=== PATIENT | female | born 1995 | race African-American/Black ===

== ENCOUNTER 2019-05-09 11:23 | Emergency (ER) | payer OTHER ==
[2019-05-09 11:39] VITALS: BP 112/54; PULSE 79; TEMP 98.8; BMI 25.8
[2019-05-09] MEDS ORDERED: ALBUTEROL SO4 2.5/IPRATROPIUM 0.5 INH SOL 3 ML VIAL.NEB. NEB ONE ×2 (12:24→12:27)
--- NOTE | 2019-05-09 12:25 | PDOC ---
History of Present Illness - General Chief Complaint: Sore Throat Stated Complaint: SORE THROAT/DIFF BREATHING Time Seen by Provider: 05/09/19 12:04 History Source: Patient Exam Limitations: No Limitations - History of Present Illness Initial Comments: 05/09/19 12:32 24y F hx of asthma (no intubations, last admission ~1yr ago)presentings with 1 day of sore throat, nonproductive cough, sneezing, mild sob/wheezing without associated fever/chills, n/v, ear pain. No recent travel or known sick contacts. Daughter is also here with similar sypmtmos of coughing/sneezing. denies any cp, abd pain, back pain, leg swelling. pt has not taken any meds for her wheezing as she ran out of her albuterol. denie ssmoking, drug use family hx noncontributory Constitutional - no reported Fever, Chills, HEENT: +sore throat no reported vision changes, Respiratory: +cough, sob, no reported hemoptysis Cardiac: no reported chest pain, palpitations, light headedness, leg swelling Abd/GI: no reported abd pain, nausea, vomiting, blood per rectum, melena, diarrhea Musculskelatal - no reported back pain, joint swelling skin - no reported bruising, erythema, rash neurological: no reported headache, numbness, focal weakness, tingling, ataxia, hematologic: no reported easy bruising, easy bleeding GENERAL: The patient is awake, alert, and fully oriented, Nontoxic - in no acute distress. HEAD: Normocephalic, atraumatic. EYES: extraocular movements intact, sclera anicteric, conjunctiva clear. ENT: Normal voice, Moist mucous membranes, mild erythema in the posterior pharynx without any exudates or asymmetry NECK: Normal range of motion, supple LUNGS: Scattered wheezing bilaterally without any rales or rhonchi, speaking complete sentences no acute respiratory distress HEART: Regular rate and rhythm, normal S1 and S2 without murmur, rub or gallop. EXTREMITIES: Normal range of motion, no edema. NEUROLOGICAL: No facial assymetry, Normal speech, moving all 4 extremities spontaneously and symmetrically PSYCH: Normal mood, normal affect. SKIN: Warm, Dry, normal turgor, Suspect viral syndrome exacerbating asthma, we will obtain a rapid strep We'll give duoneb x 1 and reasesss, if patient requires more than one nebulizer we'll consider prednisone 05/09/19 13:18 rap[id strep neg pt feelin gimproved pulm rpeat exam shows clear lungs will give refill for neb/albuterol but will defer predisone I discussed the physical exam findings, ancillary test results and final diagnoses with the patient. I answered all of the patient's questions. The patient was satisfied with the care received and felt comfortable with the discharge plan and treatment plan. The patient will call their primary care physician within 24 hours to arrange follow-up and will return to the Emergency Department with any new, persistent or worsening symptoms. Past History - Past Medical History Allergies/Adverse Reactions: Allergies Allergy/AdvReac Type Severity Reaction Status Date / Time No Known Allergies Allergy Verified 05/09/19 11:35 Home Medications: Ambulatory Orders Albuterol 0.083% Nebulizer Minna [Ventolin 0.083% Nebulizer Soln -] 1 neb NEB Q4H PRN #30 vial 05/09/19 Albuterol Sulfate Inhaler - [Ventolin HFA Inhaler -] 1 - 2 inh PO Q4H #1 inhaler 05/09/19 Asthma: Yes Cancer: No Cardiac Disorders: No COPD: No Diabetes: No HTN: No Seizures: No Thyroid Disease: No - Reproductive History (#): 3 Para: 1 Cervical CA: No Dysfunctional Uterine Bleeding: No Ectopic : No Endometrial CA: No Polycystic Ovaries: No Therapeutic (s) & number: No Tubal Ligation: No Spontaneous : 1 - Immunization History Immunization Up to Date: Yes - Suicide/Smoking/Psychosocial Hx Smoking History: Never smoked Have you smoked in the past 12 months: No Information on smoking cessation initiated: No Hx Alcohol Use: No Drug/Substance Use Hx: No Substance Use Type: None Hx Substance Use Treatment: No *Physical Exam - Vital Signs Last Vital Signs Temp Pulse Resp BP Pulse Ox 98.8 F 79 16 112/54 L 98 05/09/19 11:36 05/09/19 11:36 05/09/19 11:36 05/09/19 11:36 05/09/19 11:36 *DC/Admit/Observation/Transfer Diagnosis at time of Disposition: Asthma exacerbation Qualifiers: Asthma severity: mild Asthma persistence: intermittent Qualified Code(s): J45.21 - Mild intermittent asthma with (acute) exacerbation URI (upper respiratory infection) Qualifiers: URI type: acute nasopharyngitis (common cold) Qualified Code(s): J00 - Acute nasopharyngitis [common cold] - Discharge Dispostion Disposition: HOME Condition at time of disposition: Improved Decision to Admit order: No - Prescriptions Prescriptions: Albuterol 0.083% Nebulizer Minna [Ventolin 0.083% Nebulizer Soln -] 1 neb NEB Q4H PRN #30 vial PRN Reason: Cough Albuterol Sulfate Inhaler - [Ventolin HFA Inhaler -] 1 - 2 inh PO Q4H #1 inhaler - Referrals - Patient Instructions Printed Discharge Instructions: DI for Asthma -- Adult Additional Instructions: Return to the emergency department immediately with ANY new, persistent or worsening symptoms. You MUST call and follow up with your doctor tomorrow for further evaluation of your symptoms. Results were discussed with you. Please make sure your doctor reviews the results of your emergency evaluation. If you had any xrays during your visit, it was read preliminarily by myself, a Radiologist will review it and if there are any additional findings we will call you. Print Language: CHINESE - Post Discharge Activity
== END 2019-05-09 13:26 | disposition home or self-care (01) ==
LOC: JERFT 11:23
PROC: 3E0F7GC Introduction of Other Therapeutic Substance into Respiratory Tract, Via Natural or Artificial Opening (ICD-10-PCS; principal; 2019-05-09)
DX: J45.21 Mild intermittent asthma with (acute) exacerbation (principal); J00 Acute nasopharyngitis [common cold]
CPT/HCPCS: 87070; 87880; 94640; 99282-25

== ENCOUNTER 2019-09-16 17:26 | Emergency (ER) | payer OTHER ==
[2019-09-16 17:33] VITALS: BP 105/58; PULSE 68; TEMP 98; BMI 28.3
--- NOTE | 2019-09-16 17:47 | PDOC ---
History of Present Illness - General Chief Complaint: Injury Stated Complaint: LACERATION Time Seen by Provider: 09/16/19 17:33 History Source: Patient - History of Present Illness Occurred: reports: just prior to arrival Pain Location: reports: face Method of Injury: Yes: fall Past History - Past Medical History Allergies/Adverse Reactions: Allergies Allergy/AdvReac Type Severity Reaction Status Date / Time No Known Allergies Allergy Verified 09/16/19 17:33 Home Medications: Ambulatory Orders Albuterol 0.083% Nebulizer Minna [Ventolin 0.083% Nebulizer Soln -] 1 neb NEB Q4H PRN #30 vial 05/09/19 Albuterol Sulfate Inhaler - [Ventolin HFA Inhaler -] 1 - 2 inh PO Q4H #1 inhaler 05/09/19 Asthma: Yes Cancer: No Cardiac Disorders: No COPD: No Diabetes: No HTN: No Seizures: No Thyroid Disease: No - Reproductive History (#): 3 Para: 1 Cervical CA: No Dysfunctional Uterine Bleeding: No Ectopic : No Endometrial CA: No Polycystic Ovaries: No Therapeutic (s) & number: No Tubal Ligation: No Spontaneous : 1 - Immunization History Immunization Up to Date: Yes - Psycho Social/Smoking Cessation Hx Smoking History: Never smoked Have you smoked in the past 12 months: No Hx Alcohol Use: No Drug/Substance Use Hx: No Substance Use Type: None Hx Substance Use Treatment: No Review of Systems - Review of Systems Neurological: No: Headache, Dizziness *Physical Exam - Vital Signs Last Vital Signs Temp Pulse Resp BP Pulse Ox 98 F 68 18 105/58 L 98 09/16/19 17:31 09/16/19 17:31 09/16/19 17:31 09/16/19 17:31 09/16/19 17:31 - Physical Exam General Appearance: Yes: Appropriately Dressed. No: Apparent Distress HEENT: positive: Other (superficial abrasions to L lower labial mucosa and to L lower lip, dentition intact) Neck: positive: Supple Integumentary: positive: Dry, Warm Neurologic: positive: Fully Oriented, Alert, Normal Mood/Affect Medical Decision Making - Medical Decision Making 09/16/19 17:43 24-year-old F, with lip injury after fall. Patient states she tripped down steps today striking face against banister. No LOC ,headache, dizziness nausea or vomiting. Patient well-appearing and stable with superficial abrasions to labial mucosa/lower lip. No need for repair. Tetanus UTD. Dc for wound check as needed in 48 hours 1 Discharge - Discharge Information Problems reviewed: Yes Clinical Impression/Diagnosis: Lip abrasion Qualifiers: Encounter type: initial encounter Qualified Code(s): S00.511A - Abrasion of lip , initial encounter Condition: Good Disposition: HOME - Follow up/Referral - Patient Discharge Instructions Patient Printed Discharge Instructions: DI for Minor Laceration Additional Instructions: Your laceration today is very minor and did not warrant repair. Take Motrin or Tylenol as needed for pain Return in 2 days as needed for redness pus or fever Refrain from spicy or salty foods until wound heals - Post Discharge Activity
== END 2019-09-16 17:52 | disposition home or self-care (01) ==
LOC: JERFT 17:26
DX: S00.511A Abrasion of lip, initial encounter (principal); W10.8XXA Fall (on) (from) other stairs and steps, initial encounter; Y93.89 Activity, other specified; Y99.8 Other external cause status; Y92.414 Local residential or business street as the place of occurrence of the external cause
CPT/HCPCS: 99282-25

== ENCOUNTER 2019-10-20 12:15 | Emergency (ER) | payer OTHER ==
[2019-10-20 12:53] VITALS: BP 104/63; PULSE 88; TEMP 98.2; BMI 29.2
[2019-10-20] MEDS ORDERED: IBUPROFEN 600 MG TABLET (FP) PO ONE ×2 (14:31→14:43)
--- NOTE | 2019-10-20 14:35 | PDOC ---
History of Present Illness - General Chief Complaint: Pain Stated Complaint: SWOLLEN PINKY Time Seen by Provider: 10/20/19 13:28 History Source: Patient Exam Limitations: No Limitations - History of Present Illness Initial Comments: 10/20/19 14:31 24 year old female with medical history of asthma, no significant surgical history presents with pain and swelling to left 5th digit since earlier today. Patient reports while lifting a basket her finger got caught in the basket pulling it backwards. Complaining of pain with movement. Occurred: reports: this afternoon Severity: reports: mild Upper Extremity Pain Location: left: 5th finger Method of Injury: reports: other (lifting) Modifying Factors: improves with: immobilization Extremity Pain Location - Extremity Pain Location Extremity Pain Locations: left: 5th finger Past History - Travel Traveled outside of the country in the last 30 days: No Close contact w/someone who was outside of country & ill: No - Past Medical History Allergies/Adverse Reactions: Allergies Allergy/AdvReac Type Severity Reaction Status Date / Time No Known Allergies Allergy Verified 10/20/19 12:53 Home Medications: Ambulatory Orders Ibuprofen 600 mg PO TID #20 tablet 10/20/19 Asthma: Yes Cancer: No Cardiac Disorders: No COPD: No Diabetes: No HTN: No Seizures: No Thyroid Disease: No - Reproductive History (#): 3 Para: 1 Cervical CA: No Dysfunctional Uterine Bleeding: No Ectopic : No Endometrial CA: No Polycystic Ovaries: No Therapeutic (s) & number: No Tubal Ligation: No Spontaneous : 1 - Immunization History Immunization Up to Date: Yes - Psycho Social/Smoking Cessation Hx Smoking History: Never smoked Have you smoked in the past 12 months: No Information on smoking cessation initiated: No Hx Alcohol Use: No Drug/Substance Use Hx: No Substance Use Type: None Hx Substance Use Treatment: No Review of Systems - Review of Systems Able to Perform ROS?: Yes Is the patient limited Mohawk proficient: No Constitutional: No: Chills, Fever HEENTM: No: Ear Pain, Nose Congestion Respiratory: No: Orthopnea, Shortness of Breath Cardiac (ROS): No: Chest Pain, Lightheadedness ABD/GI: No: Blood Streaked Bowels, Vomiting : No: Burning, Discharge, Incontinence Musculoskeletal: Yes: Other (swelling of left 5th digit) Integumentary: No: Erythema Neurological: No: Headache, Numbness Endocrine: No: Increased Urine, Unexplained Weight Gain *Physical Exam - Vital Signs Last Vital Signs Temp Pulse Resp BP Pulse Ox 98.2 F 88 20 104/63 95 10/20/19 12:51 10/20/19 12:51 10/20/19 12:51 10/20/19 12:51 10/20/19 12:51 - Physical Exam General Appearance: Yes: Nourished, Appropriately Dressed HEENT: positive: TMs Normal, Pharynx Normal Neck: positive: Supple, Lymphadenopathy (R), Lymphadenopathy (L) Respiratory/Chest: positive: Lungs Clear Cardiovascular: positive: Regular Rate, S1, S2 Extremity: positive: Normal Capillary Refill, Swelling. negative: Erythema Neurologic: positive: Fully Oriented, Alert Medical Decision Making - Medical Decision Making 10/20/19 14:34 24 year old female with medical history of asthma, no significant surgical history presents with pain and swelling to left 5th digit since earlier today. Patient reports while lifting a basket her finger got caught in the basket pulling it backwards. finger injury xray analgesia ordered 10/20/19 15:29 wet read negative xray of finger splint place d/c home Discharge - Discharge Information Problems reviewed: Yes Clinical Impression/Diagnosis: Finger injury Qualifiers: Encounter type: initial encounter Laterality: left Qualified Code(s): S69.92XA - Unspecified injury of left wrist, hand and finger(s), initial encounter Condition: Good Disposition: HOME - Admission No - Additional Discharge Information Prescriptions: Ibuprofen 600 mg PO TID #20 tablet - Follow up/Referral Referrals: Augustus Leon MD [Primary Care Provider] - Quentin Vivar MD [Staff Physician] - Call tomorrow CallBack Reminder: xray results - Patient Discharge Instructions Patient Printed Discharge Instructions: Finger Sprain Additional Instructions: Apply ice compress to area for 20 minutes 3 to 4 times daily wear splint for comfort may remove for showering Elevate at rest May call orthopedic if not better within 7 days - Post Discharge Activity Work/Back to School Note: Back to Work
== END 2019-10-20 15:49 | disposition home or self-care (01) ==
LOC: JERFT 12:15
PROC: 2W3KX1Z Immobilization of Left Finger using Splint (ICD-10-PCS; principal; 2019-10-20)
DX: S69.82XA Other specified injuries of left wrist, hand and finger(s), initial encounter (principal); W23.0XXA Caught, crushed, jammed, or pinched between moving objects, initial encounter; Y93.89 Activity, other specified; Y92.89 Other specified places as the place of occurrence of the external cause; Y99.8 Other external cause status
CPT/HCPCS: 29131; 73130-TC-LT-FY; 73140-TC-LT-FY; 99282-25

== ENCOUNTER 2019-10-27 12:47 | Emergency (ER) | payer OTHER ==
--- NOTE | 2019-10-27 13:03 | PDOC ---
History of Present Illness - General Chief Complaint: Nausea/Vomiting Stated Complaint: VOMITING/vaginal bleeding Time Seen by Provider: 10/27/19 13:02 History Source: Patient Exam Limitations: No Limitations - History of Present Illness Initial Comments: 10/27/19 13:03 PCP: Dr. Coffman PROTECTION ANALYST: Dr. Haylie Orta HPI: 24yo F PMH asthma presenting with nausea and vomiting for 2 days. Patient reports N/V starting after losing her appetite 2 days ago. Reports symptoms began after eating [place] food, no one else with similar symptoms, "almost constant vomiting" for two days. No PO tolerance since 2 days ago. No sick contacts. Noted some spots of blood her in emesis starting last night. Endorses chills at home, abdominal pain begining after the N/V located primarily in epigastrium and bilateral lower quadrants (intermittent, crampy, non-progressive ). Noted some spotting last night (LMP August, Irregular since giving March 20 of this year, , currently breast feeding), no history of polyps / fibroids / cysts or abnormal PAP results. Has had UTIs in the past, this feels different. No hx of kidney stones. Does not use BC and states she could be . Denies CP, SOB, fevers, diarrhea / constipation, blood per rectum. All: NKDA Meds: Albuterol as needed PMH: As above PSH: Denies Past History - Travel Traveled outside of the country in the last 30 days: No Close contact w/someone who was outside of country & ill: No - Past Medical History Allergies/Adverse Reactions: Allergies Allergy/AdvReac Type Severity Reaction Status Date / Time No Known Allergies Allergy Verified 10/27/19 13:01 Home Medications: Ambulatory Orders Ibuprofen 600 mg PO TID #20 tablet 10/20/19 Asthma: Yes Cancer: No Cardiac Disorders: No COPD: No Diabetes: No HTN: No Seizures: No Thyroid Disease: No - Reproductive History (#): 3 Para: 1 Cervical CA: No Dysfunctional Uterine Bleeding: No Ectopic : No Endometrial CA: No Polycystic Ovaries: No Therapeutic (s) & number: No Tubal Ligation: No Spontaneous : 1 - Immunization History Immunization Up to Date: Yes - Psycho Social/Smoking Cessation Hx Smoking History: Never smoked Have you smoked in the past 12 months: No Hx Alcohol Use: No Drug/Substance Use Hx: No Substance Use Type: None Hx Substance Use Treatment: No Review of Systems - Review of Systems Able to Perform ROS?: Yes Is the patient limited Finnish proficient: Yes Constitutional: Yes: Chills. No: Diaphoresis, Fever, Weakness HEENTM: No: Blurred Vision, Recent change in vision, Throat Pain, Throat Swelling Respiratory: No: Cough, Shortness of Breath, Wheezing Cardiac (ROS): No: Chest Pain, Irregular Heart Rate, Lightheadedness, Palpitations, Chest Tightness ABD/GI: Yes: Nausea, Poor Appetite, Poor Fluid Intake, Vomiting. No: Blood Streaked Bowels, Constipated, Diarrhea, Rectal Bleeding : No: Burning, Dysuria, Discharge, Frequency, Pain Musculoskeletal: No: Muscle Weakness, Neck Pain Integumentary: No: Bruising, Change in Hair/Nails, Erythema, Rash Neurological: No: Headache, Numbness, Tingling, Weakness Psychiatric: No: Anxiety, Depression, Emotional Problems Hematologic/Lymphatic: No: Anemia, Blood Clots, Easy Bleeding All Other Systems: Reviewed and Negative *Physical Exam - Vital Signs Last Vital Signs Temp Pulse Resp BP Pulse Ox 98.0 F 80 16 105/65 100 10/27/19 12:50 10/27/19 12:50 10/27/19 12:50 10/27/19 12:50 10/27/19 12:50 - Physical Exam 10/27/19 13:06 Vitals reviewed, AFVSS WDWN woman, appears stated age, no acute distress, no active heaving / emesis EOMI, MMM, normal morphologies, atraumatic RRR, nl s1s2, no murmurs appreciated Normal WOB, CTABL, no wheezes / rales / rhonchi Soft, non-distended, tender in epigastrium, no scars, tattoos present WWP, no clubbing / cyanosis / edema 2+ radial and PT pulses Warm, dry, no rashes appreciated CN grossly intact, MAEE, normal strength and sensation 10/27/19 14:11 Pelvic exam performed with Nurse Anamaria Scott assisting / as gauge checker SSE: Normal external genitalia, normal vaginal rugae without legions, thin white physiologic discharge, no blood in the vault, normal closed os visualized with smooth cervix BME: Non-tender adnexa and cervix, no adnexal fullness appreciated ED Treatment Course - LABORATORY CBC & Chemistry Diagram: 10/27/19 13:40 10/27/19 13:40 Medical Decision Making - Medical Decision Making 10/27/19 13:06 24yo F with PMH asthma presenting with nausea and vomiting for 2 days. Hx notable for concurrent spotting, no BC. Notably not vomiting while in the ED. DDX includes but is not limited to: viral gastritis, (ectopic vs IUP) , pancreatitis, UTI. Less likely something like DKA presentation of DM2 in an otherwise young healthy patient. Unlikely colitis, hepatitis, biliary pathology given Hx and exam. Small volume blood streaks in emesis after several days of consistent n/v c/w Brenda Tamez picture, [place] unlikely. Normal pelvic exam without CMT making PID unlikely, no active bleeding, closed os. - CBC, CMP, UPreg, UA, Lipase - T&S and Ultrasound if UPreg positive - Pepcid, Zosyn, 1L IVF 10/27/19 14:06 - CBC unremarkable with mild WBC elevation to 10.4, stable H&H - Results of pelvic and CBC conveyed to patient - Urine studies pending 10/27/19 16:30 - Type and screen hemolyzed, prior O negative in chart - Patient now at ultrasound - CMP unremarkable - UA negative for UTI 10/27/19 17:26 - TVUS with viable 6wk Dispo: Home Discharge - Discharge Information Problems reviewed: Yes Clinical Impression/Diagnosis: Qualifiers: Weeks of gestation: less than 8 weeks Qualified Code(s): Z3A.01 - Less than 8 weeks gestation of Condition: Stable Disposition: HOME - Admission No - Follow up/Referral - Patient Discharge Instructions Patient Printed Discharge Instructions: DI for Nausea -- Adult, DI for Vomiting -- Adult Additional Instructions: Please follow up with your PROTECTION ANALYST in the next week to establish obstetric care. Return to the ED for any new or concerning symptoms including vaginal bleeding, worsening abdominal pain, nausea/vomiting that prevents you from tolerating fluids by mouth. - Post Discharge Activity
[2019-10-27 13:04] VITALS: BP 105/65; PULSE 80; TEMP 98; BMI 28.8
[2019-10-27] MEDS ORDERED: ONDANSETRON 4 MG/2 ML VIAL IVPUSH ONE (13:24)
[2019-10-27] MEDS ORDERED: SODIUM CHLORIDE 0.9% 500 ML INFUS.BAG IV ONE (13:25)
[2019-10-27] MEDS ORDERED: ONDANSETRON 4 MG/2 ML VIAL ONE (13:33)
[2019-10-27] MEDS ORDERED: FAMOTIDINE 20 MG TABLET PO ONE (13:34)
[2019-10-27 13:52] LABS: BASO % 0.7 % (0-2.0); EOS % 0.4 % (0-4.5); HEMATOCRIT 40.2 % (32.4-45.2); HEMOGLOBIN 13.4 GM/dL (10.7-15.3); LYMPH % 20.8 % (8-40); MCHC 33.4 g/dl (32.0-36.0); MEAN CELL VOLUME 98.8 fl (80-96); MEAN PLT VOLUME 7.8 fl (7.5-11.1); MONO % 6.5 % (3.8-10.2); NEUT % 71.6 % (42.8-82.8); PLATELET COUNT 274 K/MM3 (134-434); RBC 4.07 M/mm3 (3.60-5.2); RDW 12.7 % (11.6-15.6); WHITE BLOOD COUNT 10.4 K/mm3 (4.0-10.0)
[2019-10-27] MEDS ORDERED: FAMOTIDINE 10 MG TABLET ONE (14:04)
--- NOTE | 2019-10-27 14:09 | PDOC ---
Attending Attestation - Resident Resident Name: TyreseJace - ED Attending Attestation I have performed the following: I have examined & evaluated the patient, The case was reviewed & discussed with the resident, I agree w/resident's findings & plan - HPI HPI: 10/27/19 14:07 Healthy 24-year-old female presents with nausea/vomiting/diarrhea/abdominal cramping for 2 days. Patient reports she had [place] food 3 nights ago, since then has had intermittent generalized abdominal cramping with nonbloody nonbilious vomiting and nonbloody diarrhea, no fevers or chills, no urinary complaints. No recent travel, no known sick contacts, no recent antibiotics. Over the last 48 hours, patient also noted some vaginal spotting, from March 2019 and breast-feeding so menstrual cycles have been irregular, LMP August. - Physicial Exam PE: 10/27/19 14:08 Vital signs normal, urine pending Well-appearing, no acute distress No jaundice or pallor, slightly dry mucosa Heart is regular, lungs are clear Abdomen is soft/nondistended. Epigastric and suprapubic discomfort to palpation without guarding or rebound, no CVA tenderness Pelvic as per resident note No edema - Medical Decision Making 10/27/19 14:08 24-year-old female presents with 2 days of nausea/vomiting/diarrhea/Abdominal cramping without focal peritoneal findings on examination and with normal vital signs here. Possible viral etiology such as gastroenteritis, possible food borne illness, rule out . Check labs, urinalysis No indication for emergent imaging Rehydration, antacid, antiemetic Reassess and disposition accordingly 10/27/19 14:58 LFT and lipase normal. + serum , so obtain EVUS to r/o ectopic. Pt aware. UA pending.
[2019-10-27 14:23] LABS: ALBUMIN 3.9 g/dl (3.4-5.0); BILIRUBIN,TOTAL 0.7 mg/dL (0.2-1); BLOOD UREA NITROGEN 9.6 mg/dL (7-18); CALCIUM 8.7 mg/dL (8.5-10.1); CREATININE 0.9 mg/dL (0.55-1.3); POTASSIUM 4.8 mmol/L (3.5-5.1); TOT PROT 7.8 g/dl (6.4-8.2)
[2019-10-27 16:18] LABS: EPI CELLS 1.7 /HPF (0-5/HPF); HYALINE CASTS 16 /lpf (0-8); PH,URINE 5.5 (5.0-8.0); URINE APPEARANCE CLEAR; URINE BILIRUBIN NEGATIVE (NEGATIVE); URINE COLOR YELLOW; URINE GLUCOSE (UA) NEGATIVE (NEGATIVE); URINE KETONE 3+ (NEGATIVE); URINE LEUK ESTERASE NEGATIVE (NEGATIVE); URINE NITRITE NEGATIVE (NEGATIVE); URINE PROTEIN 1+ (NEGATIVE); URINE RBC 12 /hpf (0-4)
[2019-10-27 16:38] LABS: URINE WBC 23.3 /hpf (0-5)
== END 2019-10-27 17:56 | disposition home or self-care (01) ==
LOC: JER 12:47
PROC: 3E033GC Introduction of Other Therapeutic Substance into Peripheral Vein, Percutaneous Approach (ICD-10-PCS; principal; 2019-10-27)
PROC: 3E0337Z Introduction of Electrolytic and Water Balance Substance into Peripheral Vein, Percutaneous Approach (ICD-10-PCS; 2019-10-27)
DX: Z3A.01 Less than 8 weeks gestation of pregnancy (principal)
CPT/HCPCS: 36415; 76817-TC; 80053; 81003; 83690; 84702; 85025; 99283-25

== ENCOUNTER 2020-08-27 15:50 | Emergency (ER) | payer OTHER ==
[2020-08-27 16:20] VITALS: BMI 30.5
--- NOTE | 2020-08-27 16:31 | PDOC ---
Rapid Medical Evaluation Chief Complaint: Back Pain Medical Evaluation: Allergies Allergy/AdvReac Type Severity Reaction Status Date / Time No Known Allergies Allergy Verified 08/27/20 16:16 Vital Signs Temp Pulse Resp BP Pulse Ox 98.7 F 97 H 16 121/53 L 100 08/27/20 16:16 08/27/20 16:16 08/27/20 16:16 08/27/20 16:16 08/27/20 16:16 08/27/20 16:28 25-year-old female G3, P2, 33 weeks gestation presents complaining of low back pain since yesterday worsening today. Denies vaginal discharge, vaginal bleeding, trauma, nausea, vomiting, abdominal pain, chest pain, shortness of breath, urinary complaints or any other symptoms. VSS transferred to L&D Discharge Disposition - Diagnosis Low back pain Qualifiers: Chronicity: acute Back pain laterality: unspecified Sciatica presence: without sciatica Qualified Code(s): M54.5 - Low back pain - Discharge Dispostion Last Admission D/C Date: 05/19/13 - Referrals Referrals: Augustus Leon MD [Primary Care Provider] - - Patient Instructions - Post Discharge Activity
--- OUTSIDE RECORDS SUMMARY | 2020-08-27 16:34 | XMS ---
:1995 Author Organization [facility] Support Name Relationship Address Phone UE Unavailable Unavailable Unavailable JOSÉ GRANDFATHER [address] [place] [address] JOSÉ MOTHER [address] [place] [address] JOSÉ Mother [address] [place] [address] Re-disclosure Warning The records that you are about to access may contain information from federally- assisted alcohol or drug abuse programs. If such information is present, then the following federally mandated warning applies: This information has been disclosed to you from records protected by federal confidentiality rules (42 CFR part 2). The federal rules prohibit you from making any further disclosure of this information unless further disclosure is expressly permitted by the written consent of the person to whom it pertains or as otherwise permitted by 42 CFR part 2. A general authorization for the release of medical or other information is NOT sufficient for this purpose. The Federal rules restrict any use of the information to criminally investigate or prosecute any alcohol or drug abuse patient.The records that you are about to access may contain highly sensitive health information, the redisclosure of which is protected by Article 27-F of the [facility] Public Health law. If you continue you may haveaccess to information: Regarding HIV / AIDS; Provided by facilities licensed or operated by the [facility] Office of Mental Health; or Provided by the [facility] Office for People With Developmental Disabilities. If such information is present, then the following [facility] mandated warning applies: This information has been disclosed to you from confidential records which are protected by state law. State law prohibits you from making any further disclosure of this information without the specific written consent of the person to whom it pertains, or as otherwise permitted by law. Any unauthorized further disclosure in violation of state law may result in a fine or mcfp sentence or both. A general authorization for the release of medical or other information is NOT sufficient authorization for further disclosure. Insurance Providers Payer name Policy type Policy ID Covered Covered alliance party's Policy P lupe / Coverage alliance party ID relationship to Huang Inf ormation type huang [facility] MEDICAID [id number]
--- NOTE | 2020-08-27 17:51 | PD.OB.PROG ---
Past Medical History - Primary Care Physician PCP:: Robyn Lamb Documenting Provider Type: Attending - Admission Chief Complaint: 25 yrs , 32.4 weeks gestation c/o back ache started since last night , progressively getting worse . no c/o cramps, vaginal bleeding or leaking. no urinary symptoms. FM are active . drinks plenty po fluids History of Present Illness: pnc at [address] [place] [address] . chart reviewed . Labs : panel : 12/14/19 : 11.8/35.9, plt 260 gc/ct neg sickle neg . O Pos, Hbsag neg, , varicella immune, measles immune 1 hr gtt 82, quantiferon neg US as per pt everything was ok, last US 2 wks ago , cx was normal . no h/o [place] or Progesterone suppository was given US reprt not available for review . 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 Weeks Gestation by Dates: 32.4 ...EDC by Dates: 10/18/20 Heme/Onc: Denies/None Infectious Disease: Denies/None Psych: Denies/None Musculoskeletal: Other (h/o low back ache in past) Rheumatology: Denies/None ENT: Denies/None Endocrine: Denies/None Dermatology: Denies/None - Past Surgical History Past Surgical History: Yes: None - Smoking History Smoking history: Never smoked Have you smoked in the past 12 months: No - Alcohol/Substance Use Hx Alcohol Use: No History of Substance Use: reports: None Review of Systems - Review of Systems Constitutional: reports: No Symptoms Eyes: reports: No Symptoms HENT: reports: No Symptoms Neck: reports: No Symptoms Cardiovascular: reports: No Symptoms Respiratory: reports: No Symptoms Gastrointestinal: reports: No Symptoms Genitourinary: reports: No Symptoms Breasts: reports: No Symptoms Reported Musculoskeletal: reports: No Symptoms Integumentary: reports: No Symptoms Neurological: reports: No Symptoms Endocrine: reports: No Symptoms Hematology/Lymphatic: reports: No Symptoms Psychiatric: reports: No Symptoms Pain Intensity: 6 (bckache ) Physical Exam - Obstetrical Vital Signs: Vital Signs Temperature 98.7 F 08/27/20 16:16 Pulse Rate 97 H 08/27/20 16:16 Respiratory Rate 16 08/27/20 16:16 Blood Pressure 121/53 L 08/27/20 16:16 O2 Sat by Pulse Oximetry (%) 100 08/27/20 16:16 Constitutional: Yes: Well Nourished, Mild Distress - Abdominal Exam/OB Fundal Height: 32 Number of Fetuses: Single Presentation: Vertex Contractions: No Monitor Mode: External Heart Rate (range): 150 Category: I Accelerations: Non-Uniform Decelerations: None - Vaginal Exam/OB Vaginal Exam Deferred: Yes Vaginal Bleeding: No Speculum Exam: No Dilatation (cm): close Effacement (%): 0 Amniotic Membrane Status: Intact Presentation: Vertex/Position Station: -4 - Physical Exam Musculoskeletal: Yes: WNL Extremities: Yes: WNL. No: Calf Tenderness Edema: No Psychiatric: Yes: WNL, Alert, Oriented Problem List - Problems (1) with 32 completed weeks gestation Code(s): Z3A.32 - 32 WEEKS GESTATION OF (2) Low back pain Code(s): M54.5 - LOW BACK PAIN Qualifiers: Chronicity: acute Back pain laterality: unspecified Sciatica presence: without sciatica Qualified Code(s): M54.5 - Low back pain Assessment/Plan 25 yrs , 32,3/7 weeks gestation c/o backache, h/o one premature delivery followed by term pregn . imp: musculoskeletal problem Plan back extension ex shown, avoid lifting heavy weight . continue po Vit & iron drink plenty po fluids keep clinic appt
[2020-08-27 18:07] VITALS: BP 104/64; PULSE 87; TEMP 98.3
== END 2020-08-27 17:25 | disposition home or self-care (01) ==
LOC: JER 15:50
DX: M54.5 Low back pain (principal); Z3A.33 33 weeks gestation of pregnancy
CPT/HCPCS: 99282-25

== ENCOUNTER 2020-10-19 22:30 | Inpatient (IN) | payer OTHER ==
[2020-10-19] MEDS: DEXTROSE 5%-LACTATED RINGERS 1,000 ML IV SCH (23:40)
[2020-10-19 23:50] LABS: BASO % 0.7 % (0-2.0); EOS % 0.3 % (0-4.5); HEMATOCRIT 35.7 % (32.4-45.2); HEMOGLOBIN 11.4 GM/dL (10.7-15.3); LYMPH % 17.6 % (8-40); MCH 31.1 pg (25.7-33.7); MEAN CELL VOLUME 97.2 fl (80-96); MEAN PLT VOLUME 8.8 fl (7.5-11.1); MONO % 6.2 % (3.8-10.2); NEUT % 75.2 % (42.8-82.8); PLATELET COUNT 266 K/MM3 (134-434); RBC 3.68 M/mm3 (3.60-5.2); RDW 13.2 % (11.6-15.6); WHITE BLOOD COUNT 12.5 K/mm3 (4.0-10.0)
[2020-10-19 23:51] VITALS: BMI 31.9
[2020-10-19 23:56] LABS: INR 0.99 (0.83-1.09)
[2020-10-20] MEDS ORDERED: PROMETHAZINE HCL 25 MG/1 ML VIAL IVPUSH ONE (00:04)
[2020-10-20] MEDS ORDERED: BUTORPHANOL TARTRATE 1 MG/ML VIAL IVPB ONE (00:04)
[2020-10-20 00:26] LABS: POTASSIUM 3.9 mmol/L (3.5-5.1)
[2020-10-20 00:30] LABS: BLOOD UREA NITROGEN 4.7 mg/dL (7-18); CALCIUM 9.3 mg/dL (8.5-10.1)
[2020-10-20 00:32] LABS: CREATININE 0.6 mg/dL (0.55-1.3)
[2020-10-20 01:17] LABS: HIV INTERPRETATION NEGATIVE (NEGATIVE)
[2020-10-20] MEDS ORDERED: OXYTOCIN 30 UNITS in 0.9% NS 30 UNIT/500 ML INFUS.BAG IVPB ONE (01:49)
[2020-10-20] MEDS ORDERED: OXYTOCIN 30 UNITS in 0.9% NS 30 UNIT/500 ML INFUS.BAG IVPB SCH (02:00)
[2020-10-20] MEDS ORDERED: PROMETHAZINE HCL 25 MG/1 ML VIAL ONE (02:25)
[2020-10-20] MEDS ORDERED: BUTORPHANOL TARTRATE 2 MG/ML VIAL ONE (02:25)
[2020-10-20] MEDS ORDERED: OXYTOCIN 20 UNITS in 0.9% NS 20 UNIT/1,000 ML INFUS.BAG IV ONE (04:31)
[2020-10-20 05:56] LABS: CORD HCO3 21.8 mmHg (20-29); CORD PCO2 42.3 mmHg (30-78); CORD pH 7.33 (7.14-7.44)
[2020-10-20] MEDS ORDERED: BENZOCAINE 28 GM HEMORRHOIDAL OINTMENT TP PRN (06:17)
[2020-10-20] MEDS ORDERED: BENZOCAINE 20% 57 GM BOTTLE TP PRN (06:17)
[2020-10-20] MEDS ORDERED: oxyCODONE HCL 5 MG TABLET PO PRN (06:17)
[2020-10-20] MEDS ORDERED: WITCH HAZEL 50% (TUCKS) 40 PAD/JAR PAD TP PRN (06:17)
[2020-10-20] MEDS ORDERED: METHYLERGONOVINE MALEATE 0.2 MG/1 ML AMP IM PRN (06:17)
[2020-10-20] MEDS ORDERED: BISACODYL 10 MG SUPP.RECT RC PRN (06:17)
[2020-10-20] MEDS ORDERED: OXYTOCIN 20 UNITS in 0.9% NS 20 UNIT/1,000 ML INFUS.BAG IV SCH (06:30)
[2020-10-20] MEDS: IBUPROFEN 600 MG TABLET (FP) PO PRN (06:35)
[2020-10-20] MEDS: ACETAMINOPHEN 325 MG TABLET (FP) PO PRN ×2 (06:35→14:45)
[2020-10-20] MEDS: FERROUS SO4 325 MG TABLET (FP) PO SCH ×2 (10:01→17:18)
[2020-10-20] MEDS: PRENATAL VITAMINS W/ FOLIC ACID TABLET (FP) PO SCH (10:01)
[2020-10-21] MEDS: DEXTROSE 5%-LACTATED RINGERS 1,000 ML IV SCH (06:06)
[2020-10-21 08:30] LABS: BASO % 0.4 % (0-2.0); EOS % 0.4 % (0-4.5); HEMATOCRIT 32.8 % (32.4-45.2); HEMOGLOBIN 10.4 GM/dL (10.7-15.3); LYMPH % 17.7 % (8-40); MCH 30.9 pg (25.7-33.7); MCHC 31.7 g/dl (32.0-36.0); MEAN CELL VOLUME 97.4 fl (80-96); MEAN PLT VOLUME 8.3 fl (7.5-11.1); NEUT % 74.5 % (42.8-82.8); PLATELET COUNT 228 K/MM3 (134-434); RBC 3.37 M/mm3 (3.60-5.2); RDW 13.3 % (11.6-15.6); WHITE BLOOD COUNT 13.5 K/mm3 (4.0-10.0)
[2020-10-21] MEDS: ACETAMINOPHEN 325 MG TABLET (FP) PO PRN ×2 (09:00→17:39)
[2020-10-21] MEDS: FERROUS SO4 325 MG TABLET (FP) PO SCH ×2 (09:00→17:39)
[2020-10-21] MEDS: IBUPROFEN 600 MG TABLET (FP) PO PRN ×2 (09:01→17:40)
[2020-10-21] MEDS: PRENATAL VITAMINS W/ FOLIC ACID TABLET (FP) PO SCH (10:47)
[2020-10-21] MEDS ORDERED: SENNOSIDES/DOCUSATE COMBO (SENNA PLUS) TABLET (UD) PO PRN (22:00)
[2020-10-22] MEDS: FERROUS SO4 325 MG TABLET (FP) PO SCH (08:04)
[2020-10-22 08:37] LABS: BASO % 0.5 % (0-2.0); EOS % 0.7 % (0-4.5); HEMATOCRIT 34.2 % (32.4-45.2); HEMOGLOBIN 10.8 GM/dL (10.7-15.3); LYMPH % 22.5 % (8-40); MCH 30.7 pg (25.7-33.7); MCHC 31.5 g/dl (32.0-36.0); MEAN CELL VOLUME 97.5 fl (80-96); MEAN PLT VOLUME 8.5 fl (7.5-11.1); MONO % 5.9 % (3.8-10.2); NEUT % 70.4 % (42.8-82.8); PLATELET COUNT 255 K/MM3 (134-434); RBC 3.51 M/mm3 (3.60-5.2); RDW 13.5 % (11.6-15.6); WHITE BLOOD COUNT 11.2 K/mm3 (4.0-10.0)
[2020-10-22] MEDS: PRENATAL VITAMINS W/ FOLIC ACID TABLET (FP) PO SCH (09:30)
[2020-10-22 10:31] VITALS: BP 111/63; PULSE 87; TEMP 98
== END 2020-10-22 11:15 | disposition home or self-care (01) | DRG 560 ==
LOC: JDEL 22:30 → JLDR 22:31 → JDEL 22:48 → J3W 10-20 09:17
PROVIDERS: ADMIT Obstetrics & Gynecology; ATTEND Obstetrics & Gynecology
PROC: 10E0XZZ Delivery of Products of Conception, External Approach (ICD-10-PCS; principal; 2020-10-20)
DX: O48.0 Post-term pregnancy (principal); Z3A.40 40 weeks gestation of pregnancy; Z37.0 Single live birth
CPT/HCPCS: 36415; 36600; 59409; 80048; 82803; 85025; 85610; 85730; 86780; 86850; 86900; 86901; 87389; C9803; U0003

== ENCOUNTER 2021-11-10 14:44 | Emergency (ER) | payer OTHER ==
[2021-11-10 15:10] VITALS: BP 105/74; PULSE 115; TEMP 98; BMI 29.2
[2021-11-10] MEDS ORDERED: ACETAMINOPHEN 500 MG TABLET (FP) PO ONE (16:30)
[2021-11-10] MEDS ORDERED: ONDANSETRON *ODT* 4 MG TABLET SL ONE (16:31)
[2021-11-10] MEDS ORDERED: ONDANSETRON *ODT* 4 MG TABLET ONE (16:40)
[2021-11-11 16:11] LABS: SARS-CoV-2 NAA Detected (Not Detected)
== END 2021-11-10 19:08 | disposition home or self-care (01) ==
LOC: JER 14:44
DX: J06.9 Acute upper respiratory infection, unspecified (principal)
CPT/HCPCS: 87804; 87807; 99284-25; C9803; Q0162; U0003; U0005

== ENCOUNTER 2022-01-31 10:01 | Emergency (ER) | payer OTHER ==
[2022-01-31 10:11] VITALS: BP 105/65; PULSE 86; TEMP 98.1
[2022-01-31] MEDS ORDERED: ACETAMINOPHEN 500 MG TABLET (FP) PO ONE (10:42)
[2022-01-31] MEDS ORDERED: ACETAMINOPHEN 500 MG TABLET (FP) ONE (10:44)
[2022-01-31] MEDS ORDERED: IBUPROFEN 600 MG TABLET (FP) PO ONE ×2 (11:42→11:47)
== END 2022-01-31 11:50 | disposition home or self-care (01) ==
LOC: JERFT 10:01
DX: M54.2 Cervicalgia (principal); M54.6 Pain in thoracic spine; G44.319 Acute post-traumatic headache, not intractable; V49.40XA Driver injured in collision with unspecified motor vehicles in traffic accident, initial encounter
CPT/HCPCS: 70450-TC; 72125-TC; 99284-25

== ENCOUNTER 2022-04-20 08:16 | Emergency (ER) | payer OTHER ==
[2022-04-20 08:30] VITALS: BP 119/74; PULSE 117; TEMP 97.9; BMI 29.1
[2022-04-20] MEDS ORDERED: SODIUM CHLORIDE 0.9% 500 ML INFUS.BAG IV ONE (08:50)
[2022-04-20] MEDS ORDERED: ONDANSETRON 4 MG/2 ML VIAL IVPUSH ONE (08:51)
[2022-04-20] MEDS ORDERED: ACETAMINOPHEN 1000 MG/100 ML BAG IVPB ONE (08:51)
[2022-04-20] MEDS ORDERED: ONDANSETRON 4 MG/2 ML VIAL ONE (09:03)
[2022-04-20] MEDS ORDERED: ACETAMINOPHEN INJECTION 100 ML IVPB ONE (09:03)
[2022-04-20 09:29] LABS: HCG,QUALITATIVE URINE Positive
[2022-04-20 09:33] LABS: EPI CELLS >36 /uL (0-25.1); HYALINE CASTS 6 /uL (0-3.1); PH,URINE 5.5 (5.0-8.0); URINE APPEARANCE CLOUDY; URINE BACTERIA 347 /uL (0-1359); URINE BILIRUBIN 1+ (NEGATIVE); URINE COLOR DK YELLOW; URINE GLUCOSE (UA) NEGATIVE (NEGATIVE); URINE KETONE 1+ (NEGATIVE); URINE LEUK ESTERASE 2+ (NEGATIVE); URINE NITRITE NEGATIVE (NEGATIVE); URINE PROTEIN 2+ (NEGATIVE); URINE WBC 1406 /uL (0-25.8)
[2022-04-20 09:46] LABS: BLOOD UREA NITROGEN 6.3 mg/dL (7-18)
[2022-04-20 09:49] LABS: CREATININE 0.8 mg/dL (0.55-1.3)
[2022-04-20 09:51] LABS: BILIRUBIN,TOTAL 0.6 mg/dL (0.2-1); TOT PROT 7.7 g/dl (6.4-8.2)
[2022-04-20 09:54] LABS: BASO % 0.5 % (0-2.0); EOS % 0.5 % (0-4.5); HEMATOCRIT 39.3 % (32.4-45.2); HEMOGLOBIN 12.9 GM/dL (10.7-15.3); MCH 31.5 pg (25.7-33.7); MCHC 32.9 g/dl (32.0-36.0); MEAN CELL VOLUME 95.5 fl (80-96); MEAN PLT VOLUME 7.5 fl (7.5-11.1); MONO % 6.4 % (3.8-10.2); NEUT % 68.6 % (42.8-82.8); PLATELET COUNT 315 10^3/uL (134-434); RBC 4.11 M/mm3 (3.60-5.2); RDW 12.6 % (11.6-15.6); WHITE BLOOD COUNT 11.4 K/mm3 (4.0-10.0)
[2022-04-20 10:29] LABS: URINE RBC 29 /uL (0-23.9)
[2022-04-20] MEDS ORDERED: CEPHALEXIN MONOHYDRATE 500 MG CAPSULE (UD) PO ONE (11:26)
[2022-04-20] MEDS ORDERED: METOCLOPRAMIDE HCL INJECTION 10 MG/2 ML VIAL IVPUSH ONE (11:26)
[2022-04-20] MEDS ORDERED: METOCLOPRAMIDE HCL INJECTION 10 MG/2 ML VIAL ONE (11:35)
[2022-04-20] MEDS ORDERED: CEPHALEXIN MONOHYDRATE 500 MG CAPSULE (UD) ONE (11:35)
== END 2022-04-20 12:58 | disposition home or self-care (01) ==
LOC: JER 08:16
PROC: 3E033GC Introduction of Other Therapeutic Substance into Peripheral Vein, Percutaneous Approach (ICD-10-PCS; principal; 2022-04-20)
DX: O21.9 Vomiting of pregnancy, unspecified (principal); O26.891 Other specified pregnancy related conditions, first trimester; R10.13 Epigastric pain; Z3A.01 Less than 8 weeks gestation of pregnancy
CPT/HCPCS: 36415; 71046-TC-FY; 76705-TC; 76817-TC; 80053; 81003; 83690; 84703; 85025; 87086; 93005; 93010; 99285-25

== ENCOUNTER 2022-08-08 12:07 | Emergency (ER) | payer OTHER ==
[2022-08-08 12:41] VITALS: BP 107/58; PULSE 109; RESP 18; TEMP 98.6; BMI 75.2
[2022-08-08] MEDS ORDERED: DEXAMETHASONE SOD PHOSPHATE 10 MG/1 ML VIAL IM ONE (13:44)
[2022-08-08] MEDS ORDERED: DEXAMETHASONE SOD PHOSPHATE 10 MG/1 ML VIAL ONE (14:13)
[2022-08-08 14:53] LABS: THROAT:GRP A STREP NOT DETECTED (NOTDETECTED)
== END 2022-08-08 15:03 | disposition home or self-care (01) ==
LOC: JER 12:07
PROC: 3E023NZ Introduction of Analgesics, Hypnotics, Sedatives into Muscle, Percutaneous Approach (ICD-10-PCS; principal; 2022-08-08)
DX: R07.0 Pain in throat (principal); R09.81 Nasal congestion
CPT/HCPCS: 0241U-QW; 87070; 87651; 99283-25; J1100

== ENCOUNTER 2022-12-13 08:15 | Inpatient (IN) | payer OTHER ==
[2022-12-13 09:37] VITALS: BMI 36.6
[2022-12-13] MEDS ORDERED: ELECTROLYTE-148 SOLN 1,000 ML IV SCH (10:00)
[2022-12-13] MEDS ORDERED: METHYLERGONOVINE MALEATE 0.2 MG/1 ML AMP IM PRN (10:00)
[2022-12-13 10:14] LABS: CORD BASE EXCESS -5.4 mmol/L (0-2); CORD HCO3 22.3 mmHg (20-29); CORD PCO2 52.6 mmHg (30-78); CORD pH 7.246 (7.14-7.44)
[2022-12-13 10:17] LABS: CORD HCO3 25.2 mmHg (20-29); CORD PCO2 70.6 mmHg (30-78)
[2022-12-13] MEDS: OXYTOCIN 20 UNITS in 0.9% NS 20 UNIT/1,000 ML INFUS.BAG IV SCH ×2 (11:00→19:48)
[2022-12-13] MEDS ORDERED: OXYTOCIN 20 UNITS in 0.9% NS 20 UNIT/1,000 ML INFUS.BAG IV ONE (11:12)
[2022-12-13] MEDS: IBUPROFEN 800 MG/8 ML IJ IVPB PRN ×2 (13:31→22:08)
[2022-12-13] MEDS: CEFAZOLIN 1 GM in DEXTROSE 5%-WATER - 50 ML IVPB SCH (17:04)
[2022-12-13] MEDS: IBUPROFEN 600 MG TABLET (FP) PO PRN (18:40)
[2022-12-13] MEDS: ACETAMINOPHEN 325 MG TABLET (FP) PO PRN (20:57)
[2022-12-13] MEDS: SIMETHICONE 80 MG TAB.CHEW (FP) PO PRN (20:58)
[2022-12-14] MEDS: CEFAZOLIN 1 GM in DEXTROSE 5%-WATER - 50 ML IVPB SCH ×2 (01:05→10:38)
[2022-12-14] MEDS: SIMETHICONE 80 MG TAB.CHEW (FP) PO PRN ×3 (01:05→20:20)
[2022-12-14] MEDS: ACETAMINOPHEN 325 MG TABLET (FP) PO PRN ×2 (04:14→09:22)
[2022-12-14] MEDS: IBUPROFEN 800 MG/8 ML IJ IVPB PRN (06:12)
[2022-12-14 06:43] LABS: BASO % 0.2 % (0-2.0); EOS % 0.1 % (0-4.5); HEMATOCRIT 26.3 % (32.4-45.2); HEMOGLOBIN 8.3 GM/dL (10.7-15.3); MCH 28.6 pg (25.7-33.7); MCHC 31.7 g/dl (32.0-36.0); MEAN CELL VOLUME 90.4 fl (80-96); MEAN PLT VOLUME 8.4 fl (7.5-11.1); NEUT % 81.7 % (42.8-82.8); PLATELET COUNT 227 10^3/uL (134-434); RDW 17.1 % (11.6-15.6); WHITE BLOOD COUNT 17.1 K/mm3 (4.0-10.0)
[2022-12-14] MEDS: oxyCODONE HCL 5 MG TABLET PO PRN ×2 (10:39→18:11)
[2022-12-14] MEDS: IBUPROFEN 600 MG TABLET (FP) PO PRN ×2 (12:30→20:20)
[2022-12-14] MEDS: BISACODYL 10 MG SUPP.RECT RC PRN (13:50)
[2022-12-15] MEDS: SIMETHICONE 80 MG TAB.CHEW (FP) PO PRN ×4 (01:17→20:33)
[2022-12-15] MEDS: IBUPROFEN 600 MG TABLET (FP) PO PRN ×4 (01:17→20:33)
[2022-12-15] MEDS ORDERED: ONDANSETRON 4 MG TABLET PO ONE (08:14)
[2022-12-15] MEDS: BISACODYL 10 MG SUPP.RECT RC PRN (08:46)
[2022-12-15] MEDS: oxyCODONE HCL 5 MG TABLET PO PRN ×2 (09:37→15:13)
[2022-12-15 10:23] LABS: BASO % 0.2 % (0-2.0); EOS % 0.1 % (0-4.5); HEMOGLOBIN 9.1 GM/dL (10.7-15.3); LYMPH % 9.5 % (8-40); MCH 28.3 pg (25.7-33.7); MCHC 31.5 g/dl (32.0-36.0); MEAN CELL VOLUME 89.9 fl (80-96); MEAN PLT VOLUME 8.6 fl (7.5-11.1); MONO % 6.3 % (3.8-10.2); NEUT % 83.9 % (42.8-82.8); PLATELET COUNT 298 10^3/uL (134-434); RBC 3.22 M/mm3 (3.60-5.2); WHITE BLOOD COUNT 16.3 K/mm3 (4.0-10.0)
[2022-12-15 10:36] LABS: ALBUMIN 2.2 g/dl (3.4-5.0); BLOOD UREA NITROGEN 6.4 mg/dL (7-18); CALCIUM 8.2 mg/dL (8.5-10.1)
[2022-12-15 10:39] LABS: CREATININE 0.7 mg/dL (0.55-1.3)
[2022-12-15 10:41] LABS: BILIRUBIN,TOTAL 0.5 mg/dL (0.2-1); TOT PROT 5.9 g/dl (6.4-8.2)
[2022-12-15] MEDS ORDERED: ONDANSETRON *ODT* 4 MG TABLET SL PRN ×2 (15:16→19:30)
[2022-12-16] MEDS: oxyCODONE HCL 5 MG TABLET PO PRN ×2 (04:14→11:41)
[2022-12-16] MEDS: SIMETHICONE 80 MG TAB.CHEW (FP) PO PRN ×2 (04:15→11:41)
[2022-12-16 09:28] LABS: BASO % 0.3 % (0-2.0); EOS % 0.3 % (0-4.5); HEMATOCRIT 27.2 % (32.4-45.2); HEMOGLOBIN 8.6 GM/dL (10.7-15.3); LYMPH % 18.8 % (8-40); MCH 28.7 pg (25.7-33.7); MCHC 31.8 g/dl (32.0-36.0); MEAN CELL VOLUME 90.4 fl (80-96); MEAN PLT VOLUME 8.2 fl (7.5-11.1); MONO % 6.1 % (3.8-10.2); NEUT % 74.5 % (42.8-82.8); PLATELET COUNT 303 10^3/uL (134-434); RBC 3.01 M/mm3 (3.60-5.2); RDW 16.9 % (11.6-15.6); WHITE BLOOD COUNT 11.5 K/mm3 (4.0-10.0)
[2022-12-16 15:05] VITALS: BP 119/80; PULSE 85; RESP 17; TEMP 97.7
== END 2022-12-16 14:55 | disposition home or self-care (01) | DRG 540 ==
LOC: JLDR 08:15 → J3W 11:20
PROVIDERS: ADMIT Student in an Organized Health Care Education/Training Program; ATTEND Student in an Organized Health Care Education/Training Program
PROC: 10D00Z1 Extraction of Products of Conception, Low, Open Approach (ICD-10-PCS; principal; 2022-12-13)
PROC: 0UT70ZZ Resection of Bilateral Fallopian Tubes, Open Approach (ICD-10-PCS; 2022-12-13)
DX: O36.63X0 Maternal care for excessive fetal growth, third trimester, not applicable or unspecified (principal); O34.211 Maternal care for low transverse scar from previous cesarean delivery; O77.0 Labor and delivery complicated by meconium in amniotic fluid; O90.81 Anemia of the puerperium; D72.829 Elevated white blood cell count, unspecified; Z3A.40 40 weeks gestation of pregnancy; Z37.0 Single live birth
CPT/HCPCS: 36415; 36600; 71045-TC-FY; 80053; 82803; 85025; 85610; 86780; 86850; 86900; 86901; 88302-TC; 88307-TC; C9803-CS; U0003; U0005